=== PATIENT | female | born 2000 | race African-American/Black ===

== ENCOUNTER 2023-07-31 19:32 | Emergency (ER) | payer MEDICAID ==
[~2023-07-31] VITALS: Ht 165.1 cm; Wt 48.6 kg
[2023-07-31 19:44] VITALS: BP 97/61; PULSE 92; RESP 16; O2SAT 100
== END 2023-07-31 20:56 | disposition left against medical advice (07) ==
LOC: ER 19:32
DX: O26.891 Other specified pregnancy related conditions, first trimester (principal); R10.31 Right lower quadrant pain; Z3A.09 9 weeks gestation of pregnancy; Z53.21 Procedure and treatment not carried out due to patient leaving prior to being seen by health care provider